=== PATIENT | male | born 1980 | race Caucasian/White ===

== ENCOUNTER 2021-08-30 21:32 | Observation (INO) | payer OTHER, SELFPAY ==
[~2021-08-30] VITALS: Ht 182.9 cm; Wt 103.9 kg
[2021-08-30 21:40] VITALS: BP 154/100
--- NOTE | 2021-08-30 21:44 | NUR ---
to lobby a/w bed ambulatory
--- NOTE | 2021-08-30 22:00 | NUR ---
pt ambulated to bed 09
--- NOTE | 2021-08-30 22:10 | NUR ---
41 YO M BIB SELF WITH C/C OF SOB XTODAY AT 6PM, LAYING DOWN WORSENS SOB. PT STATES HE DEVELOPED A COUGH TODAY AND A RUNNY NOSE SINCE FRIDAY. PT STATES HE DID A RAPID COVID TEST AT HOME AND CAME BACK NEGATIVE. REPORTS HAVING MIDBACK PAIN 10/10- SQUEEZING AND SHARP. PT TOOK IBUPROFEN AND MUSINEX WITH LITTLE RELIEF. LUNG SOUNDS CLEAR THROUGHOUT. HX:HTN AND HDL RX:NITROGLYCERIN, METOPROLOL, LISINOPRIL, AMLODIPINE NKDA
[2021-08-30] MEDS ORDERED: ONDANSETRON 4 MG/2 ML VIAL IVP ONE (22:45)
[2021-08-30] MEDS ORDERED: MORPHINE SULFATE 4 MG/ML SYR IVP ONE (22:45)
[2021-08-30 23:05] LABS: BASOPHILS % (AUTO) 0.3 % (0.0-2.0); EOSINOPHILS # (AUTO) 0.3 K/uL (0-0.4); EOSINOPHILS % (AUTO) 2.5 % (0.0-4.0); HEMATOCRIT 46.4 % (36-52); LYMPHOCYTES # (AUTO) 1.9 K/uL (2.0-11.5); LYMPHOCYTES % (AUTO) 14.6 % (20.5-51.1); MEAN CORPUSCULAR HEMOGLOBIN 32 pg (27-31); MEAN CORPUSCULAR HGB CONC 34 g/dL (33-37); MEAN CORPUSCULAR VOLUME 91.9 fL (80-94); MONOCYTES # (AUTO) 0.9 K/uL (0.8-1.0); MONOCYTES % (AUTO) 6.7 % (1.7-9.3); NEUTROPHILS # (AUTO) 9.8 K/uL (1.8-7.7); NEUTROPHILS % (AUTO) 75.9 % (42.2-75.2); PLATELET COUNT (AUTO) 191 K/uL (140-450); RED BLOOD CELL COUNT(AUTO) 5.06 MIL/uL (4.20-6.10); WHITE BLOOD COUNT (AUTO) 12.9 K/uL (4.8-10.8)
[2021-08-30 23:23] LABS: PROTHROMBIN TIME 11.6 secs (10.8-13.4)
--- NOTE | 2021-08-30 23:23 | NUR ---
IV TO RIGHT AC 20G
[2021-08-30 23:34] LABS: ANION GAP 10.4 (8-16); CARBON DIOXIDE 28.5 mmol/L (21-32); CREATININE 1.3 mg/dL (0.6-1.3); POTASSIUM 3.9 mmol/L (3.5-5.1); TOTAL BILIRUBIN 0.4 mg/dL (0.0-1.0)
--- NOTE | 2021-08-31 00:17 | NUR ---
pt back from ct.
--- NOTE | 2021-08-31 00:37 | NUR ---
pt desat to 92% placed on 2L nc, o2 97%
[2021-08-31] MEDS ORDERED: NACL 0.9% 1,000 ML IV ONE ×2 (00:50→03:05)
--- NOTE | 2021-08-31 02:07 | NUR ---
pt is awake and alert sitting up in bed. vss. pt is in stable condition. all needs met at this time. bed locked in lowest position, side rails x2 for safety.
[2021-08-31] MEDS ORDERED: AZITHROMYCIN 500 MG in DEXTROSE 5% 250 ML IV ONE (03:00)
[2021-08-31] MEDS ORDERED: cefTRIAXone 1,000 MG VIAL ONE (03:27)
[2021-08-31] MEDS ORDERED: ACETAMINOPHEN 325 MG TAB PO ONE (03:35)
[2021-08-31] MEDS ORDERED: ACETAMINOPHEN 325 MG TAB ONE (03:36)
[2021-08-31] MEDS ORDERED: AZITHROMYCIN 500 MG INJ VIAL IV ONE (04:29)
[2021-08-31] MEDS ORDERED: HYDROcodone/APAP 5/325 MG 1 TAB TAB PO PRN (05:00)
[2021-08-31] MEDS ORDERED: MAGNESIUM OXIDE 400 MG TAB PO PRN (05:00)
[2021-08-31] MEDS ORDERED: POTASSIUM CHLORIDE 10 MEQ TABER PO PRN (05:00)
[2021-08-31] MEDS ORDERED: MAG SULF 2000 MG/WATER PREMIX 50 ML IV PRN (05:00)
[2021-08-31] MEDS ORDERED: MORPHINE SULFATE 4 MG/ML SYR IVP PRN (05:00)
[2021-08-31] MEDS ORDERED: ACETAMINOPHEN 325 MG TAB PO PRN (05:00)
[2021-08-31] MEDS ORDERED: ONDANSETRON 4 MG/2 ML VIAL IVP PRN (05:00)
[2021-08-31] MEDS ORDERED: KCL 20 MEQ/WATER INJ PREMIX 200 ML IV PRN (05:00)
[2021-08-31] MEDS ORDERED: NITR0.4T94 SL (05:04)
[2021-08-31] MEDS ORDERED: LISI-486 PO (05:04)
[2021-08-31] MEDS ORDERED: METO-748 PO (05:04)
[2021-08-31] MEDS ORDERED: AMLO5TAB PO (05:04)
--- NOTE | 2021-08-31 05:06 | NUR ---
pt is sitting up in bed. vss. pt is in stable conditiomn. all needs met at this time. bed locked in lowest position, side rails x2 for safety.
--- NOTE | 2021-08-31 07:14 | NUR ---
Pt report given to orlando deluca. Transfer of care at this time.
--- NOTE | 2021-08-31 07:18 | NUR ---
report recieved from KELLY hinkle for transfer of care
--- NOTE | 2021-08-31 08:04 | NUR ---
Patient will be admitted to care of DR. RAMIREZ. Admited to [facility]. Will go to room 115. Belongings list completed. Report to KELLY DSOUZA. Addendum: 08/31/21 at 0805 by [id number] PT TAKEN VIA W/C TO B ED 115 BY SILVA EMT
[2021-08-31 08:15] VITALS: BP 127/79
--- NOTE | 2021-08-31 08:15 | NUR ---
Patient's Plan of Care was discussed and reviewed with MAT GAUGER: LIANNA MUNOZ
--- NOTE | 2021-08-31 08:15 | NUR ---
PT ARRIVED ONTO UNIT AT 0815 VIA GURNEY ACCOOMPANIED BY ER NURSE AND TRANSPORTER. PT IS AWAKE, ALERT, AND COOPERATIVE. RESPIRATIONS ARE EVEN AND UNLABORED, PT IS ON 2L 02 VIA NC WITH 02 SAT OF 98%. LUNG SOUNDS CLEAR ON AUSCULTATION. HE REGULAR, S1&S2 NOTED. PT ABD IS NONTENDER, NONDISTENDED WITH BOWEL SOUNDS PRESENT IN ALL QUADRANTS. SKIN IS WARM, DRY, AND INTACT. PT HAS IV TO R AC, 20G. IV IS INTACT AND PATENT. SKIN ASSESSMENT AND MRSA SCREEN DONE. VITALS TAKEN. ALL SAFETY MEASURES IN PLACE. BED IN LOWEST POSITION. CALL LIGHT WITHIN REACH. WILL CONTINUE TO MONITOR.
[2021-08-31] MEDS ORDERED: NITROGLYCERIN 0.4 MG TAB SL PRN (08:30)
[2021-08-31] MEDS ORDERED: lisinopriL 10 MG TAB PO SCH (09:00)
[2021-08-31] MEDS ORDERED: amLODIPine 5 MG TAB PO SCH (09:00)
--- NOTE | 2021-08-31 09:30 | NUR ---
REMOVED NASAL CANNULA WITH 2L02. WILL MONITOR PT.
[2021-08-31] MEDS: DOCUSATE SODIUM 100 MG GELCAP PO SCH (09:36)
--- NOTE | 2021-08-31 09:40 | NUR ---
PT HAS BEEN ON ROOM AIR FOR ABOUT 10 MINUTES. NO COMPLAINS OF SOB. 02 SAT AT 93%. WILL CONTINUE TO MONITOR.
--- NOTE | 2021-08-31 10:15 | NUR ---
PT CONTINUES ON ROOM AIR. 02 SAT BETWEEN 93%-95%. NO COMPLAINTS OF SOB. NO DISTRESS NOTED. WILL CONTINUE TO MONITOR.
[2021-08-31] MEDS: methylPREDNISolone SS 40 MG/ML VIAL IVP SCH ×2 (11:46→18:51)
[2021-08-31] MEDS: ALBUTEROL SULFATE/IPRATROPIU 3 ML SOL IH SCH ×4 (12:00→23:03)
--- NOTE | 2021-08-31 12:00 | NUR ---
AWAKE AND ALERT VERBALLY RESPONSIVE GOOD CHEST RISE SATURATION 91% ROOM AIR POST HHN THERAPY PLACED ON SUPPLEMENTAL OXYGEN AT 2 LPM VIA [place] PICKING CREW SUPERVISOR TO NOTIFY RN
--- NOTE | 2021-08-31 14:48 | NUR ---
DID ROUNDS ON PT. PT IS SLEEPING AT THIS TIME. RESPIRATIONS ARE EVEN AND UNLABORED. NO SIGNS OF DISTRESS NOTED. PT IS BACK ON 2L02. NO COMPLAINTS OF SOB. WILL CONTINUE TO MONITOR.
--- NOTE | 2021-08-31 15:54 | NUR ---
AWAKE AND ALERT VERBALLY RESPONSIVE PATIENT SELF REMOVED SUPPLEMENTAL OXYGEN PATIENT STATES "I TOOK OFF THE OXYGEN DON'T WANT TO WEAR " SATURATION 92% ROOM AIR EDUCATION PROVIDED TO PATIENT ON THE BENEFITS OF USING SUPPLEMENTAL OXYGEN ESPECIALLY WITH HIS ADMITTING DX OF PNEUMONIA WITH HYPOXIA
--- NOTE | 2021-08-31 17:05 | NUR ---
PT IS ON ROOM AIR, AMBULATING AROUND HIS ROOM. NO SIGNS OF DISTRESS NOTED. SO COMPLAINTS OF SOB. WILL CONTINUE TO MONITOR.
[2021-08-31 17:42] VITALS: BP 131/82
--- NOTE | 2021-08-31 19:20 | NUR ---
ENDORSED PT TO ANALYSIS DIRECTOR NURSE FOR CONTINUITY OF CARE. PT IS STABLE.
--- NOTE | 2021-08-31 19:21 | NUR ---
RECEIVED REPORT FROM MORNING SHIFT NURSE FOR CONTINUITY OF CARE. PATIENT IS STABLE IN BED. A&OX4. VERBALLY RESPONSIVE AND ABLE TO COMMUNICATE NEEDS. DENIES PAIN AT THIS TIME. RESPIRATIONS EVEN AND UNLABORED. ON ROOM AIR WITH NO S/SX OF APPARENT ACUTE DISTRESS. SKIN IS INTACT. PATIENT IS WALKIE-TALKIE. IV SITE TO THE RAC 20G SL IS PATENT, INTACT, AND ASYMPTOMATIC. PLAN OF CARE AND WHITE COMMUNICATION BOARD UPDATED. BED IN LOW/LOCKED POSITION. CALL LIGHT WITHIN REACH. PATIENT ENCOURAGED TO CALL FOR ANY NEEDS/ASSISTANCE. WILL CONTINUE TO MONITOR.
--- NOTE | 2021-08-31 19:21 | NUR ---
PT PLAN OF CARE DISCUSSED AND REVIEWED WITH NOEL INGRAM.
[2021-08-31 20:00] VITALS: BP 132/83
--- NOTE | 2021-08-31 20:45 | NUR ---
FAMILY MEMBER DROPPED OFF FOOD AND PERSONAL BELONGINGS TO PATIENT. ADVISED FAMILY MEMBER THAT VISITORS ARE NOT ALLOWED DUE TO PUI STATUS. PATIENT VERBALIZED HOW THANKFUL HE IS FOR DROPPING OFF ITEMS. PATIENT DENIES PAIN AT THIS TIME. RESPIRATIONS EVEN AND UNLABORED WITH NO APPARENT S/SX OF ACUTE RESPIRATORY DISTRESS. WHITE COMMUNICATION BOARD UPDATED. ALL SAFETY MEASURES IN PLACE. CALL LIGHT WITHIN REACH. WILL CONTINUE TO MONITOR.
--- NOTE | 2021-08-31 22:40 | NUR ---
INFORMED PATIENT THAT BEDTIME HEART MEDICATIONS WERE ORDERED BY DR. RAMIREZ. PATIENT VERBALIZED UNDERSTANDING. PATIENT IS WONDERING ABOUT DC ORDERS FOR TOMORROW. INFORMED PATIENT THAT THERE IS NO DC ORDER ACTIVE AT THIS TIME. INFORMED PATIENT THAT THIS INFORMATION WILL BE ENDORSED TO MORNING SHIFT. PATIENT DENIES PAIN AT THIS TIME. RESPIRATIONS EVEN AND UNLABORED WITH NO APPARENT S/SX OF ACUTE DISTRESS. WHITE COMMUNICATION BOARD UPDATED. ALL SAFETY MEASURES IN PLACE. CALL LIGHT WITHIN REACH. WILL CONTINUE TO MONITOR.
--- NOTE | 2021-09-01 00:35 | NUR ---
CHECKED PATIENT. STABLE AND ASLEEP. CHEST IS RISING AND FALLING. RESPIRATIONS EVEN AND UNLABORED WITH NO APPARENT S/SX OF ACUTE DISTRESS. WHITE COMMUNICATION BOARD UPDATED. ALL SAFETY MEASURES IN PLACE. CALL LIGHT WITHIN REACH. WILL CONTINUE TO MONITOR.
[2021-09-01] MEDS: methylPREDNISolone SS 40 MG/ML VIAL IVP SCH ×4 (01:56→18:00)
--- NOTE | 2021-09-01 02:35 | NUR ---
ROUNDED ON PATIENT. STABLE AND ASLEEP. CHEST IS RISING AND FALLING. RESPIRATIONS EVEN AND UNLABORED WITH NO APPARENT S/SX OF ACUTE DISTRESS. WHITE COMMUNICATION BOARD UPDATED. ALL SAFETY MEASURES IN PLACE. CALL LIGHT WITHIN REACH. WILL CONTINUE TO MONITOR.
[2021-09-01] MEDS: ALBUTEROL SULFATE/IPRATROPIU 3 ML SOL IH SCH ×4 (03:00→15:51)
--- NOTE | 2021-09-01 03:09 | NUR ---
PT PRESENTS LYING IN BED W/ NO SIGNS OF RESPIRATORY DISTRESS SATING 92% ON 2LPM NC. PT REFUSED MED SAID HE RATHER GET SOME REST SINCE HE HASN'T SLEPT WELL IN A COUPLE DAYS. WILL CONTINUE TO MONITOR.
[2021-09-01] MEDS ORDERED: AZITHROMYCIN 500 MG in DEXTROSE 5% 250 ML IV SCH (03:30)
[2021-09-01 04:00] VITALS: BP 135/85
--- NOTE | 2021-09-01 05:30 | NUR ---
TOOK PATIENT OFF NASAL CANULA TO ASSESS IF PATIENT WILL TOLERATE ROOM AIR. WILL RECHECK IN 30 MINUTES.
--- NOTE | 2021-09-01 06:00 | NUR ---
PATIENT'S O2 SATURATION ON ROOM AIR IS 91%. RECONNECTED PATIENT'S NASAL CANNULA AT 2L. EDUCATED PATIENT THAT DISCHARGE PLAN WILL OCCUR ONCE PATIENT IS ABLE TO TOLERATE ROOM AIR ABOVE 94%. PATIENT DENIES PAIN. RESPIRATIONS EVEN AND UNLABORED WITH NO APPARENT S/SX OF ACUTE DISTRESS. WHITE COMMUNICATION BOARD UPDATED. ALL SAFETY MEASURES IN PLACE. CALL LIGHT WITHIN REACH. WILL CONTINUE TO MONITOR.
--- NOTE | 2021-09-01 07:15 | NUR ---
ENDORSED TO MORNING SHIFT NURSE FOR CONTINUITY OF CARE. PATIENT IS STABLE.
--- NOTE | 2021-09-01 07:33 | NUR ---
RECEIVED REPORT FROM MARKING ROOM SUPERVISOR NURSE FOR CONTINUITY OF CARE. PATIENT IS A&OX4. VERBALLY RESPONSIVE AND ABLE TO COMMUNICATE NEEDS. RESPIRATIONS EVEN AND UNLABORED. ON ROOM AIR WITH NO S/SX OF APPARENT ACUTE DISTRESS. SKIN IS INTACT. IV SITE TO THE RAC 20G SL IS PATENT, INTACT, AND ASYMPTOMATIC. PLAN OF CARE DISCUSSED. BED IN LOW/LOCKED POSITION. CALL LIGHT WITHIN REACH. PATIENT ENCOURAGED TO CALL FOR ANY NEEDS/ASSISTANCE. WILL CONTINUE TO MONITOR.
[2021-09-01 07:39] LABS: BASOPHILS # (AUTO) 0.1 K/uL (0.00-0.22); BASOPHILS % (AUTO) 0.3 % (0.0-2.0); HEMATOCRIT 45.2 % (36-52); HEMOGLOBIN 15.7 g/dL (12.0-18.0); LYMPHOCYTES % (AUTO) 5.7 % (20.5-51.1); MEAN CORPUSCULAR HEMOGLOBIN 32 pg (27-31); MEAN CORPUSCULAR HGB CONC 35 g/dL (33-37); MEAN CORPUSCULAR VOLUME 91.5 fL (80-94); MONOCYTES # (AUTO) 0.5 K/uL (0.8-1.0); MONOCYTES % (AUTO) 2.7 % (1.7-9.3); NEUTROPHILS # (AUTO) 15.5 K/uL (1.8-7.7); NEUTROPHILS % (AUTO) 91.3 % (42.2-75.2); PLATELET COUNT (AUTO) 207 K/uL (140-450); RED BLOOD CELL COUNT(AUTO) 4.93 MIL/uL (4.20-6.10); RED CELL DISTRIBUTION WIDTH 13.6 % (11.6-13.7)
[2021-09-01 08:00] VITALS: BP 124/64
[2021-09-01 08:51] LABS: ALBUMIN 3.6 g/dL (3.4-5.0); ANION GAP 16.2 (8-16); CARBON DIOXIDE 21.9 mmol/L (21-32); CREATININE 1.1 mg/dL (0.6-1.3); POTASSIUM 4.1 mmol/L (3.5-5.1); TOTAL BILIRUBIN 0.3 mg/dL (0.0-1.0)
[2021-09-01] MEDS: DOCUSATE SODIUM 100 MG GELCAP PO SCH (09:22)
--- NOTE | 2021-09-01 09:36 | NUR ---
PATIENT HAS BEEN SCREENED AND CATEGORIZED MODERATE NUTRITION RISK. PATIENT WILL BE SEEN WITHIN 3-5 DAYS OF ADMISSION. 09/04/21-09/06/21 FABIOLA GREGORIO MS, RDN
--- NOTE | 2021-09-01 09:45 | NUR ---
ALL SCHEDULED MEDS GIVEN. PT IS STABLE. NO DISTRESS NOTED. WILL CONTINUE TO MONITOR.
--- NOTE | 2021-09-01 13:07 | NUR ---
ALL SCHEDULED MEDS GIVEN. PT IS STABLE. NO DISTRESS NOTED. WILL CONTINUE TO MONITOR.
--- NOTE | 2021-09-01 15:45 | NUR ---
RT AT BEDSIDE.
--- NOTE | 2021-09-01 15:50 | NUR ---
PATIENT IS CURRENTLY ON ROOM AIR - SATURATING WELL - NO RESPIRATORY DISTRESS NOTED - PATIENT STATES THAT HE HAD ASTHMA A CHILD AND IS FAMILIAR ON THE USE OF INHALERS.
[2021-09-01 16:00] VITALS: BP 108/76
--- NOTE | 2021-09-01 16:30 | NUR ---
CHECKED ON PATIENT PT IS STABLE. NO DISTRESS NOTED. WILL CONTINUE TO MONITOR.
[2021-09-01] MEDS ORDERED: AZIT500T PO (17:16)
[2021-09-01] MEDS ORDERED: PRED20TA5 PO (17:16)
[2021-09-01 17:45] VITALS: BP 108/76
--- NOTE | 2021-09-01 18:00 | NUR ---
ENDORSED DISCHARGE INSTRUCTIONS TO PATIENT. PT VERBALIZED UNDERSTANDING AND SIGNED DISCHARGE FORMS.
--- NOTE | 2021-09-01 18:44 | NUR ---
PT OFF THE UNIT. REMOVED IV AND ID BAND. ESCORTED PATIENT TO THE FRONT LOBBY. PT WAS STABLE PRIOR TO DISCHARGE.
[2021-09-01] MEDS ORDERED: METOPROLOL SUCCINATE 50 MG TABER PO SCH (21:00)
[2021-09-01] MEDS ORDERED: amLODIPine 5 MG TAB PO SCH (21:00)
[2021-09-01] MEDS ORDERED: lisinopriL 10 MG TAB PO SCH (21:00)
== END 2021-09-01 18:30 | disposition home or self-care (01) ==
LOC: MED 21:32 → MTU 08-31 04:59 → MMU 08-31 04:59 → MTU 08-31 06:31
PROVIDERS: ADMIT Internal Medicine; ATTEND Internal Medicine
DX: J96.01 Acute respiratory failure with hypoxia (principal); Z20.822 Contact with and (suspected) exposure to COVID-19; J45.901 Unspecified asthma with (acute) exacerbation; J20.9 Acute bronchitis, unspecified; J18.9 Pneumonia, unspecified organism; I10 Essential (primary) hypertension; E78.5 Hyperlipidemia, unspecified; E66.9 Obesity, unspecified; Z79.899 Other long term (current) drug therapy
CPT/HCPCS: 36415; 71045; 71275; 74174; 80053; 83605; 83690; 83735; 83880; 84484; 85025; 85379; 85610; 85730; 87040; 87081; 87426; 87804; 93005; 94640; 94760; 96365; 96366; 96367; 96375; 96376; 99291; G0378; J0456; J0696; J2270; J2405; J2920; J7060; Q0092; Q9967; U0003